=== PATIENT | male | born 1995 | race Caucasian/White ===

== ENCOUNTER 2018-12-03 14:30 | Outpatient (RCR) | payer OTHER, MEDICAID, SELFPAY ==
--- NOTE | 2018-11-02 15:27 | PT.OTN ---
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 Iced knee, went to [email or web address] who recommended wrapping his knee, got worse. No other treatment or imaging. Knee pain increases with walking especially on uneven terrain, including stairs. Decreased pain with rest. No clicking or popping. No numbness or tingling. Only doing UE exercises and walking, no other exercises, admits to favoring of left LE. Tried knee brace but reports it made it worse. 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 Prior Functional Status Baseline Function- ADL's Independent Baseline Function- Mobility Independent Baseline Function- Gait independent, no pain or limp Baseline Function- Work/School No restrictions Baseline Function- Recreation/Hobbies bike, swim, walk, run, hike; no pain Current Functional Impairments (Reported) Functional Limitations- ADL's painful Functional Limitations- Mobility/Gait painful Functional Limitations- Work/School painful Functional Limitations- Recreation/ unable Hobbies PT-OP-C Subjective Start: 10/27/18 15:16 Freq: Status: Active Protocol: Document 11/02/18 15:13 SA (Rec: 11/02/18 15:27 [email or web address]) OP-PT Subjective Patient Comments Patient Comments Pt reports attempted a run which increased symptoms, has not used ice at home int he past but may in the future. Did some of the HEP but not all of it. PT-OP-G Mobility & Gait Start: 10/27/18 15:16 Freq: Status: Active Protocol: Document 10/27/18 15:16 SAK (Rec: 10/27/18 17:16 [facility] [id number]) OP Mobility Evaluation Transfers Sit to Stand holds left LE in front with majority of weight on right LE Functional Movements Squats painful, poor form with excessive ER bilateral LE left greater than right , left forefoot inversion OP Gait Assessment Gait Gait Assistance Required: Independent Gait Deviations General Gait Pattern Antalgic Factors Limiting Gait Function Factors Limiting Gait Function Pain Stair Climbing Evaluation Comments Stair Climbing Comments not done due to pain PT-OP-H Neuro Start: 10/27/18 15:16 Freq: Status: Active Protocol: Document 10/27/18 15:16 SAK (Rec: 10/27/18 17:16 [facility] [id number]) Sensation Evaluation Gross Sensation Gross Sensation WNL Comments Summary Comments denies tingling or numbness PT-OP-J Posture/Palpation/Skin Start: 10/27/18 15:16 Freq: Status: Active Protocol: Document 10/27/18 15:16 [facility] (Rec: 10/27/18 17:16 [facility] [id number]) Posture Evaluation Position Standing Hip Posture (L) Externally Rotated (R) Externally Rotated Knee Posture (L) Int. Tibial Torsion (R) Int. Tibial Torsion Patellar Posture (L) Neutral (R) Neutral Ankle/Foot Posture (L) Pronated (R) Pronated (L) Supinated (L) Forefoot Adducted Foot Arch (L) Low Arch (R) No Arch Palpation Assessment Location left knee Palpation Details no palpable tenderness, patient reports pain is deep inside knee Skin Assessment Other Assessments Skin Assessment Comments skin intact, no swelling noted PT-OP-K Range of Motion Start: 10/27/18 15:16 Freq: Status: Active Protocol: Document 10/27/18 15:16 SAK (Rec: 10/27/18 17:16 [facility] [id number]) Hip Goniometric Range of Motion Hip Measured in Degrees Left Flexion w/Knee Flexed 140 Straight Leg Raise 50 Extension 10 Internal Rotation 40 External Rotation 70 Right Flexion w/Knee Flexed 140 Straight Leg Raise 50 Extension 10 Internal Rotation 45 External Rotation 50 Hip ROM Limitations Hip ROM Limitations Soft Tissue Tightness Knee Goniometric Range of Motion Knee Measured in Degrees Left Flexion Passive (degrees) 100 Extension Active (degrees) 0 Right Flexion Passive (degrees) 110 Extension Active (degrees) 0 Knee ROM Limitations Knee ROM Limitations Soft Tissue Tightness Comments mod quad tightness demetria, PSLR 50 deg demetria mod tightness left IT band Ankle and Foot Goniometric Range of Motion Ankle and Foot ROM Limitations ROM Limitations Soft Tissue Tightness Comments mod gastroc and soleus tightness demetria PT-OP-L Special Tests Start: 10/27/18 15:16 Freq: Status: Active Protocol: Document 10/27/18 15:16 SAK (Rec: 10/27/18 17:16 SAK [id number]) Special Tests Knee Special Tests Patellar Grind Test Test Results negative demetria Flakita's Test Test Results positive for IT band tightness left Valgus- 25 Degrees Test Results negative demetria Varus- 25 Degrees Test Results positive left, negative right Sujatha Test Test Results positive left, negative right Posterior Draw Test Results negative demetria Anterior Draw Test Results mild increase in laxity left PT-OP-M Strength Start: 10/27/18 15:16 Freq: Status: Active Protocol: Document 10/27/18 15:16 [facility] (Rec: 10/27/18 17:16 [facility] [id number]) Hip Strength Hip Manual Muscle Testing Left Flexion (L2) 4 Good Extension (S1) 4- Good- Abduction 4- Good- External Rotation 4- Good- Internal Rotation 4+ Good+ Right Flexion (L2) 5 Normal Extension (S1) 5 Normal Abduction 4 Good External Rotation 4 Good Internal Rotation 5 Normal Knee Strength Knee Manual Muscle Testing Left Flexion (S2) 4 Good Extension (L3) 4 Good Right Flexion (S2) 5 Normal Extension (L3) 5 Normal Ankle/Foot Strength Ankle and Foot Manual Muscle Testing demetria Dorsiflexion (L4) 5 Normal Plantarflexion (S1) 5 Normal PT-OP-Q Treatments Start: 10/27/18 15:16 Freq: Status: Active Protocol: Document 11/02/18 15:13 SA (Rec: 11/02/18 15:27 SA [email or web address]) Cardio Equipment Elliptical Duration (Minutes) 5 Resistance 10 Recumbent Bicycle Duration (Minutes) 5 Resistance 6 Gym Equipment Shuttle Recovery LLE Squat Details Cues for form Resistance 50# Shuttle Recovery Platform Stable Reps/Time 2 x 10 B squat Details Cues for foot position Resistance 100# Shuttle Recovery Platform Stable Reps/Time 2 x 10 Therapeutic Exercises Sidelying Exercises Hip ABd Side left Reps/Minutes 2 x 10 Standing Exercises Squat form Side bilateral Equipment Used at bar Reps/Minutes 10x Comments Education for form, foot position and depth. pain free Manual Therapy Treatment Soft Tissue Mobilization L ITB Body Location L ITB Mobilization Type Myofascial Release Trigger Point Release Intensity/Depth Moderate Comments Manual stretching. Taping Kineso taping Body Location L lateral knee Type of Tape Kinesio Skin Inspection clear Comments Seperation taping, L lateral knee PT-OP-R Modalities Start: 10/27/18 15:16 Freq: Status: Active Protocol: Document 11/02/18 15:13 SA (Rec: 11/02/18 15:27 SA [email or web address]) Electric Stimulation Electric Stimulation IFC Body Location L knee Duration (Minutes) 15 Intensity 11 Contraction Type Normal Target/Sweep Target Patient Position Supine Combined With Heat/Cold Cold Pack Comments Pt nervous at first but tolerated well. PT-OP-T Assessment and Plan Start: 10/27/18 15:16 Freq: Status: Active Protocol: Document 11/02/18 15:13 SA (Rec: 11/02/18 15:27 [email or web address]) Physical Therapy Assessment Assessment Summary Assessment Focused on squat form/ education and avoiding foot basket turner. Pt given handout for squat form and to review again next visit. Exercise reported as pain free today. Physical Therapy Plan Next Visit Focus/Plan Next Note Type Treatment Note Next Visit Plan Assess response to Kinesio taping, E-stim and exercise tolerance, progress as able.
--- NOTE | 2018-11-04 15:44 | PT.OTN ---
Current Diagnoses Pain in unspecified knee (11/04/18) Physical Therapy Treatment Note PT-OP-A Visit Information Start: 10/27/18 15:16 Freq: Status: Active Protocol: Document 11/04/18 14:33 SAK (Rec: 11/04/18 15:15 SAK [id number]) Out-Patient Physical Therapy Visit Information Visit Information Visit Type Treatment Note Visit Start Time 14:30 Visit Stop Time 15:25 Total Visit Minutes 55 Visit Number 3 Number of [employer] WORK[employer] Visits 1 Evaluation Information Evaluation Date 10/27/18 PT-OP-B Current Condition Start: 10/27/18 15:16 Freq: Status: Active Protocol: Document 10/27/18 15:16 SAK (Rec: 10/27/18 16:13 SAK [id number]) Current Condition History of Current Condition Onset Date June 2018 Current Complaints left knee pain History of Current Condition Patient reports onset left knee pain while lifting weights with squatting motion. Iced knee, went to [facility] physician who recommended wrapping his knee, got worse. No other treatment or imaging. Knee pain increases with walking especially on uneven terrain, including stairs. Decreased pain with rest. No clicking or popping. No numbness or tingling. Only doing UE exercises and walking, no other exercises, admits to favoring of left LE. Tried knee brace but reports it made it worse. 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 Prior Functional Status Baseline Function- ADL's Independent Baseline Function- Mobility Independent Baseline Function- Gait independent, no pain or limp Baseline Function- Work/School No restrictions Baseline Function- Recreation/Hobbies bike, swim, walk, run, hike; no pain Current Functional Impairments (Reported) Functional Limitations- ADL's painful Functional Limitations- Mobility/Gait painful Functional Limitations- Work/School painful Functional Limitations- Recreation/ unable Hobbies PT-OP-C Subjective Start: 10/27/18 15:16 Freq: Status: Active Protocol: Document 11/04/18 14:33 SAK (Rec: 11/04/18 15:15 SAK [id number]) OP-PT Subjective Patient Comments Patient Comments Reports doing his exercises but also going for a run despite PT recommendation to do ex bike and elliptical at gym instead. Reports sore after work today; planted trees. PT-OP-G Mobility & Gait Start: 10/27/18 15:16 Freq: Status: Active Protocol: Document 10/27/18 15:16 SAK (Rec: 10/27/18 17:16 [facility] [id number]) OP Mobility Evaluation Transfers Sit to Stand holds left LE in front with majority of weight on right LE Functional Movements Squats painful, poor form with excessive ER bilateral LE left greater than right , left forefoot inversion OP Gait Assessment Gait Gait Assistance Required: Independent Gait Deviations General Gait Pattern Antalgic Factors Limiting Gait Function Factors Limiting Gait Function Pain Stair Climbing Evaluation Comments Stair Climbing Comments not done due to pain PT-OP-H Neuro Start: 10/27/18 15:16 Freq: Status: Active Protocol: Document 10/27/18 15:16 SAK (Rec: 10/27/18 17:16 [facility] [id number]) Sensation Evaluation Gross Sensation Gross Sensation WNL Comments Summary Comments denies tingling or numbness PT-OP-J Posture/Palpation/Skin Start: 10/27/18 15:16 Freq: Status: Active Protocol: Document 10/27/18 15:16 [facility] (Rec: 10/27/18 17:16 [facility] [id number]) Posture Evaluation Position Standing Hip Posture (L) Externally Rotated (R) Externally Rotated Knee Posture (L) Int. Tibial Torsion (R) Int. Tibial Torsion Patellar Posture (L) Neutral (R) Neutral Ankle/Foot Posture (L) Pronated (R) Pronated (L) Supinated (L) Forefoot Adducted Foot Arch (L) Low Arch (R) No Arch Palpation Assessment Location left knee Palpation Details no palpable tenderness, patient reports pain is deep inside knee Skin Assessment Other Assessments Skin Assessment Comments skin intact, no swelling noted PT-OP-K Range of Motion Start: 10/27/18 15:16 Freq: Status: Active Protocol: Document 10/27/18 15:16 [facility] (Rec: 10/27/18 17:16 [facility] [id number]) Hip Goniometric Range of Motion Hip Measured in Degrees Left Flexion w/Knee Flexed 140 Straight Leg Raise 50 Extension 10 Internal Rotation 40 External Rotation 70 Right Flexion w/Knee Flexed 140 Straight Leg Raise 50 Extension 10 Internal Rotation 45 External Rotation 50 Hip ROM Limitations Hip ROM Limitations Soft Tissue Tightness Knee Goniometric Range of Motion Knee Measured in Degrees Left Flexion Passive (degrees) 100 Extension Active (degrees) 0 Right Flexion Passive (degrees) 110 Extension Active (degrees) 0 Knee ROM Limitations Knee ROM Limitations Soft Tissue Tightness Comments mod quad tightness demetria, PSLR 50 deg demetria mod tightness left IT band Ankle and Foot Goniometric Range of Motion Ankle and Foot ROM Limitations ROM Limitations Soft Tissue Tightness Comments mod gastroc and soleus tightness demetria PT-OP-L Special Tests Start: 10/27/18 15:16 Freq: Status: Active Protocol: Document 10/27/18 15:16 [facility] (Rec: 10/27/18 17:16 [facility] [id number]) Special Tests Knee Special Tests Patellar Grind Test Test Results negative demetria Flakita's Test Test Results positive for IT band tightness left Valgus- 25 Degrees Test Results negative demetria Varus- 25 Degrees Test Results positive left, negative right Sujatha Test Test Results positive left, negative right Posterior Draw Test Results negative demetria Anterior Draw Test Results mild increase in laxity left PT-OP-M Strength Start: 10/27/18 15:16 Freq: Status: Active Protocol: Document 10/27/18 15:16 [facility] (Rec: 10/27/18 17:16 [facility] [id number]) Hip Strength Hip Manual Muscle Testing Left Flexion (L2) 4 Good Extension (S1) 4- Good- Abduction 4- Good- External Rotation 4- Good- Internal Rotation 4+ Good+ Right Flexion (L2) 5 Normal Extension (S1) 5 Normal Abduction 4 Good External Rotation 4 Good Internal Rotation 5 Normal Knee Strength Knee Manual Muscle Testing Left Flexion (S2) 4 Good Extension (L3) 4 Good Right Flexion (S2) 5 Normal Extension (L3) 5 Normal Ankle/Foot Strength Ankle and Foot Manual Muscle Testing demetria Dorsiflexion (L4) 5 Normal Plantarflexion (S1) 5 Normal PT-OP-Q Treatments Start: 10/27/18 15:16 Freq: Status: Active Protocol: Document 11/04/18 14:33 [facility] (Rec: 11/04/18 15:15 [facility] [id number]) Cardio Equipment Elliptical Duration (Minutes) 5 Resistance 10 Bicycle (Upright) Duration (Minutes) 5 Resistance 12 Seat Position 5 Other verbal cues and use of mirror for visual feedback re LE alignment Gym Equipment Shuttle Recovery LLE Squat Details Cues for form Resistance 50# Shuttle Recovery Platform Stable Reps/Time 2 x 10 B squat Details Cues for foot position Resistance 100# Shuttle Recovery Platform Stable Reps/Time 2 x 10 Shuttle Balance chains red Details balance and weight-shifts fwd/ bck, side Reps/Duration 10 min Comments emphasis on neutral LE alignment: verbal cues and mirror for visual feedback Therapeutic Exercises Standing Exercises sidestepping with resistance Resistance red TB Reps/Minutes 2 min Comments cues for LE alignment, mild lateral knee pain L Squat form Side bilateral Equipment Used at bar Reps/Minutes 10x Comments Education for form, foot position and depth. pain free Manual Therapy Treatment Soft Tissue Mobilization L ITB Body Location L ITB Mobilization Type Myofascial Release Trigger Point Release Intensity/Depth Moderate Comments Manual stretching. Taping Kineso taping Comments still intact, not done today PT-OP-R Modalities Start: 10/27/18 15:16 Freq: Status: Active Protocol: Document 11/04/18 14:33 [facility] (Rec: 11/04/18 15:15 [facility] [id number]) Electric Stimulation Electric Stimulation IFC Body Location L knee Duration (Minutes) 15 Intensity 11 Contraction Type Normal Target/Sweep Target Patient Position Supine Combined With Heat/Cold Cold Pack Comments Pt nervous at first but tolerated well. PT-OP-T Assessment and Plan Start: 10/27/18 15:16 Freq: Status: Active Protocol: Document 11/04/18 14:33 SAK (Rec: 11/04/18 15:15 [facility] [id number]) Physical Therapy Assessment Goals 4 Impairment pain Short Term Goal (STG) Able to resume at least 50% of usual activities without pain STG Duration 4 wks Skilled Nursing Goal (LTG) able to resume all usual activities without pain LTG Duration 8 wks 3 Impairment muscle imbalances left LE Short Term Goal (STG) Instruct in HEP to address LE flexibility and strengthening including correct form for squat STG Duration 4 wks Skilled Nursing Goal (LTG) Patient to demonstrate LE flexibility and strength WNL and be able to perform squat with good form LTG Duration 8 wks 2 Impairment Unable to walk without increased pain, limp Short Term Goal (STG) Patient able to walk on level surfaces without increase pain , without a limp STG Duration 4 wks Motor Scooter Repairer Goal (LTG) Patient able to walk on all surfaces without increase pain or limp LTG Duration 8 wks 1 Impairment Lower extremity functional scale (LEFS) 39% Short Term Goal (STG) Improve LEFS to 55% STG Duration 4 wks Skilled Nursing Goal (LTG) Improve LEFS to at least 75% LTG Duration 8 wks Assessment Summary Assessment Improved squat form today with improved attention to LE alignment noted, though easily distracted and requires frequent cues. Not compliant with avoiding high impact exercise. Physical Therapy Plan Frequency and Duration Frequency of Treatment 2x/Week Duration of Treatment 8 wks Plan of Care Start Date 10/27/18 Plan of Care End Date 12/27/18 Therapeutic Interventions Therapeutic Interventions Gait Training Home Exercise Program Manual Therapy Neuromuscular Re-education Patient/Caregiver Education Self-Care/Home Management Soft Tissue Mobilization Taping Therapeutic Activities Therapeutic Exercises Modalities Cold Pack/Ice Massage Electric Stimulation Hot Packs Ultrasound Next Visit Focus/Plan Next Note Type Treatment Note Next Visit Plan Add RADHIKA macario, SLS, HS strengthening as mary ellen. Continue to emphasize neutral LE alignment, joint protection .
--- NOTE | 2018-11-08 16:36 | PT.OTN ---
Current Diagnoses Pain in unspecified knee (11/08/18) Physical Therapy Treatment Note PT-OP-A Visit Information Start: 10/27/18 15:16 Freq: Status: Active Protocol: Document 11/08/18 15:30 [facility] (Rec: 11/08/18 16:35 [facility] [id number]) Out-Patient Physical Therapy Visit Information Visit Information Visit Type Treatment Note Visit Start Time 15:30 Visit Stop Time 16:15 Total Visit Minutes 45 Visit Number 4 Number of COMPOUND MIXER Visits 0 Evaluation Information Evaluation Date 10/27/18 PT-OP-B Current Condition Start: 10/27/18 15:16 Freq: Status: Active Protocol: Document 10/27/18 15:16 SAK (Rec: 10/27/18 16:13 [facility] [id number]) Current Condition History of Current Condition Onset Date June 2018 Current Complaints left knee pain History of Current Condition Patient reports onset left knee pain while lifting weights with squatting motion. Iced knee, went to [facility] physician who recommended wrapping his knee, got worse. No other treatment or imaging. Knee pain increases with walking especially on uneven terrain, including stairs. Decreased pain with rest. No clicking or popping. No numbness or tingling. Only doing UE exercises and walking, no other exercises, admits to favoring of left LE. Tried knee brace but reports it made it worse. 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 Prior Functional Status Baseline Function- ADL's Independent Baseline Function- Mobility Independent Baseline Function- Gait independent, no pain or limp Baseline Function- Work/School No restrictions Baseline Function- Recreation/Hobbies bike, swim, walk, run, hike; no pain Current Functional Impairments (Reported) Functional Limitations- ADL's painful Functional Limitations- Mobility/Gait painful Functional Limitations- Work/School painful Functional Limitations- Recreation/ unable Hobbies PT-OP-C Subjective Start: 10/27/18 15:16 Freq: Status: Active Protocol: Document 11/08/18 15:30 SAK (Rec: 11/08/18 16:35 [facility] [id number]) OP-PT Subjective Patient Comments Patient Comments Apologizes for being late, was in a meeting. States overall less knee pain, trying to work on LE alignment with all activities including walking. Went hiking this weekend reported increased pain with hike. PT-OP-G Mobility & Gait Start: 10/27/18 15:16 Freq: Status: Active Protocol: Document 10/27/18 15:16 SAK (Rec: 10/27/18 17:16 [facility] [id number]) OP Mobility Evaluation Transfers Sit to Stand holds left LE in front with majority of weight on right LE Functional Movements Squats painful, poor form with excessive ER bilateral LE left greater than right , left forefoot inversion OP Gait Assessment Gait Gait Assistance Required: Independent Gait Deviations General Gait Pattern Antalgic Factors Limiting Gait Function Factors Limiting Gait Function Pain Stair Climbing Evaluation Comments Stair Climbing Comments not done due to pain PT-OP-H Neuro Start: 10/27/18 15:16 Freq: Status: Active Protocol: Document 10/27/18 15:16 SAK (Rec: 10/27/18 17:16 [facility] [id number]) Sensation Evaluation Gross Sensation Gross Sensation WNL Comments Summary Comments denies tingling or numbness PT-OP-J Posture/Palpation/Skin Start: 10/27/18 15:16 Freq: Status: Active Protocol: Document 10/27/18 15:16 [facility] (Rec: 10/27/18 17:16 [facility] [id number]) Posture Evaluation Position Standing Hip Posture (L) Externally Rotated (R) Externally Rotated Knee Posture (L) Int. Tibial Torsion (R) Int. Tibial Torsion Patellar Posture (L) Neutral (R) Neutral Ankle/Foot Posture (L) Pronated (R) Pronated (L) Supinated (L) Forefoot Adducted Foot Arch (L) Low Arch (R) No Arch Palpation Assessment Location left knee Palpation Details no palpable tenderness, patient reports pain is deep inside knee Skin Assessment Other Assessments Skin Assessment Comments skin intact, no swelling noted PT-OP-K Range of Motion Start: 10/27/18 15:16 Freq: Status: Active Protocol: Document 10/27/18 15:16 SAK (Rec: 10/27/18 17:16 [facility] [id number]) Hip Goniometric Range of Motion Hip Measured in Degrees Left Flexion w/Knee Flexed 140 Straight Leg Raise 50 Extension 10 Internal Rotation 40 External Rotation 70 Right Flexion w/Knee Flexed 140 Straight Leg Raise 50 Extension 10 Internal Rotation 45 External Rotation 50 Hip ROM Limitations Hip ROM Limitations Soft Tissue Tightness Knee Goniometric Range of Motion Knee Measured in Degrees Left Flexion Passive (degrees) 100 Extension Active (degrees) 0 Right Flexion Passive (degrees) 110 Extension Active (degrees) 0 Knee ROM Limitations Knee ROM Limitations Soft Tissue Tightness Comments mod quad tightness demetria, PSLR 50 deg demetria mod tightness left IT band Ankle and Foot Goniometric Range of Motion Ankle and Foot ROM Limitations ROM Limitations Soft Tissue Tightness Comments mod gastroc and soleus tightness demetria PT-OP-L Special Tests Start: 10/27/18 15:16 Freq: Status: Active Protocol: Document 10/27/18 15:16 SAK (Rec: 10/27/18 17:16 [facility] [id number]) Special Tests Knee Special Tests Patellar Grind Test Test Results negative demetria Flakita's Test Test Results positive for IT band tightness left Valgus- 25 Degrees Test Results negative demetria Varus- 25 Degrees Test Results positive left, negative right Sujatha Test Test Results positive left, negative right Posterior Draw Test Results negative demetria Anterior Draw Test Results mild increase in laxity left PT-OP-M Strength Start: 10/27/18 15:16 Freq: Status: Active Protocol: Document 10/27/18 15:16 SAK (Rec: 10/27/18 17:16 [facility] [id number]) Hip Strength Hip Manual Muscle Testing Left Flexion (L2) 4 Good Extension (S1) 4- Good- Abduction 4- Good- External Rotation 4- Good- Internal Rotation 4+ Good+ Right Flexion (L2) 5 Normal Extension (S1) 5 Normal Abduction 4 Good External Rotation 4 Good Internal Rotation 5 Normal Knee Strength Knee Manual Muscle Testing Left Flexion (S2) 4 Good Extension (L3) 4 Good Right Flexion (S2) 5 Normal Extension (L3) 5 Normal Ankle/Foot Strength Ankle and Foot Manual Muscle Testing demetria Dorsiflexion (L4) 5 Normal Plantarflexion (S1) 5 Normal PT-OP-Q Treatments Start: 10/27/18 15:16 Freq: Status: Active Protocol: Document 11/08/18 15:30 SAK (Rec: 11/08/18 16:35 [facility] [id number]) Cardio Equipment Elliptical Duration (Minutes) 5 Resistance 10 Other verbal cues for LE alignment Bicycle (Upright) Duration (Minutes) 5 Resistance 12 Seat Position 5 Other verbal cues and use of mirror for visual feedback re LE alignment Therapeutic Exercises Standing Exercises Squat form Side bilateral Equipment Used mirror Reps/Minutes 10x2 Comments verbal and visual cues (mirror ) for LE alignment, form, depth Manual Therapy Treatment Taping Kineso taping Body Location L lateral knee Treatment Focus pain relief Type of Tape Kineso Skin Inspection skin intact Comments X space correction, 2 I strips PT-OP-R Modalities Start: 10/27/18 15:16 Freq: Status: Active Protocol: Document 11/08/18 15:30 [facility] (Rec: 11/08/18 16:35 [facility] [id number]) Electric Stimulation Electric Stimulation IFC Body Location L knee Duration (Minutes) 15 Intensity 11 Contraction Type Normal Target/Sweep Target Patient Position Supine Combined With Heat/Cold Cold Pack Comments Pt nervous at first but tolerated well. Ultrasound Therapy Treatment lateral left knee Treatment Duration (minutes) 8 Frequency Setting (mHz) 3 Mode Setting Continuous Duty Cycle 50% Intensity Setting (w/cm2) 1.0 PT-OP-T Assessment and Plan Start: 10/27/18 15:16 Freq: Status: Active Protocol: Document 11/08/18 15:30 [facility] (Rec: 11/08/18 16:35 [facility] [id number]) Physical Therapy Assessment Goals 4 Impairment pain Short Term Goal (STG) Able to resume at least 50% of usual activities without pain STG Duration 4 wks Long-Term Goal (LTG) able to resume all usual activities without pain LTG Duration 8 wks 3 Impairment muscle imbalances left LE Short Term Goal (STG) Instruct in HEP to address LE flexibility and strengthening including correct form for squat STG Duration 4 wks Long-Term Goal (LTG) Patient to demonstrate LE flexibility and strength WNL and be able to perform squat with good form LTG Duration 8 wks 2 Impairment Unable to walk without increased pain, limp Short Term Goal (STG) Patient able to walk on level surfaces without increase pain , without a limp STG Duration 4 wks Long-Term Goal (LTG) Patient able to walk on all surfaces without increase pain or limp LTG Duration 8 wks 1 Impairment Lower extremity functional scale (LEFS) 39% Short Term Goal (STG) Improve LEFS to 55% STG Duration 4 wks Audio Visual Collections Coordinator Goal (LTG) Improve LEFS to at least 75% LTG Duration 8 wks Assessment Summary Assessment Initially demonstrated squat with knees going past toes and heels off ground again, but with further cues able to perform correctly. Discussed patient biking vs hiking for exercise if unable to make it to gym. Discussed possibility of knee brace as his job is very physically demanding. Physical Therapy Plan Frequency and Duration Frequency of Treatment 2x/Week Duration of Treatment 8 wks Plan of Care Start Date 10/27/18 Plan of Care End Date 12/27/18 Therapeutic Interventions Therapeutic Interventions Gait Training Home Exercise Program Manual Therapy Neuromuscular Re-education Patient/Caregiver Education Self-Care/Home Management Soft Tissue Mobilization Taping Therapeutic Activities Therapeutic Exercises Modalities Cold Pack/Ice Massage Electric Stimulation Hot Packs Ultrasound Next Visit Focus/Plan Next Note Type Treatment Note Next Visit Plan Trial knee brace. Add BOSU lunge, SLS, HS strengthening as mary ellen. Continue to emphasize neutral LE alignment, joint protection .
--- NOTE | 2018-11-11 18:40 | PT.OTN ---
Current Diagnoses Pain in unspecified knee (11/11/18) Physical Therapy Treatment Note PT-OP-A Visit Information Start: 10/27/18 15:16 Freq: Status: Active Protocol: Document 11/11/18 16:45 [facility] (Rec: 11/11/18 18:40 [facility] [id number]) Out-Patient Physical Therapy Visit Information Visit Information Visit Type Treatment Note Visit Start Time 16:45 Visit Stop Time 17:30 Total Visit Minutes 45 Visit Number 5 Number of WILDLIFE BIOLOGY TECHNICIAN Visits 0 PT-OP-B Current Condition Start: 10/27/18 15:16 Freq: Status: Active Protocol: Document 10/27/18 15:16 SAK (Rec: 10/27/18 16:13 [facility]AK [id number]) Current Condition History of Current Condition Onset Date June 2018 Current Complaints left knee pain History of Current Condition Patient reports onset left knee pain while lifting weights with squatting motion. Iced knee, went to [facility] physician who recommended wrapping his knee, got worse. No other treatment or imaging. Knee pain increases with walking especially on uneven terrain, including stairs. Decreased pain with rest. No clicking or popping. No numbness or tingling. Only doing UE exercises and walking, no other exercises, admits to favoring of left LE. Tried knee brace but reports it made it worse. 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 Prior Functional Status Baseline Function- ADL's Independent Baseline Function- Mobility Independent Baseline Function- Gait independent, no pain or limp Baseline Function- Work/School No restrictions Baseline Function- Recreation/Hobbies bike, swim, walk, run, hike; no pain Current Functional Impairments (Reported) Functional Limitations- ADL's painful Functional Limitations- Mobility/Gait painful Functional Limitations- Work/School painful Functional Limitations- Recreation/ unable Hobbies PT-OP-C Subjective Start: 10/27/18 15:16 Freq: Status: Active Protocol: Document 11/11/18 16:45 HH (Rec: 11/11/18 18:40 HH [id number]) OP-PT Subjective Patient Comments Patient Comments My knee is getting a little better and does not hurt unless i run for a long distance. PT-OP-G Mobility & Gait Start: 10/27/18 15:16 Freq: Status: Active Protocol: Document 10/27/18 15:16 SAK (Rec: 10/27/18 17:16 [facility] [id number]) OP Mobility Evaluation Transfers Sit to Stand holds left LE in front with majority of weight on right LE Functional Movements Squats painful, poor form with excessive ER bilateral LE left greater than right , left forefoot inversion OP Gait Assessment Gait Gait Assistance Required: Independent Gait Deviations General Gait Pattern Antalgic Factors Limiting Gait Function Factors Limiting Gait Function Pain Stair Climbing Evaluation Comments Stair Climbing Comments not done due to pain PT-OP-H Neuro Start: 10/27/18 15:16 Freq: Status: Active Protocol: Document 10/27/18 15:16 SAK (Rec: 10/27/18 17:16 [facility] [id number]) Sensation Evaluation Gross Sensation Gross Sensation WNL Comments Summary Comments denies tingling or numbness PT-OP-J Posture/Palpation/Skin Start: 10/27/18 15:16 Freq: Status: Active Protocol: Document 10/27/18 15:16 SAK (Rec: 10/27/18 17:16 [facility] [id number]) Posture Evaluation Position Standing Hip Posture (L) Externally Rotated (R) Externally Rotated Knee Posture (L) Int. Tibial Torsion (R) Int. Tibial Torsion Patellar Posture (L) Neutral (R) Neutral Ankle/Foot Posture (L) Pronated (R) Pronated (L) Supinated (L) Forefoot Adducted Foot Arch (L) Low Arch (R) No Arch Palpation Assessment Location left knee Palpation Details no palpable tenderness, patient reports pain is deep inside knee Skin Assessment Other Assessments Skin Assessment Comments skin intact, no swelling noted PT-OP-K Range of Motion Start: 10/27/18 15:16 Freq: Status: Active Protocol: Document 10/27/18 15:16 SAK (Rec: 10/27/18 17:16 [facility] [id number]) Hip Goniometric Range of Motion Hip Measured in Degrees Left Flexion w/Knee Flexed 140 Straight Leg Raise 50 Extension 10 Internal Rotation 40 External Rotation 70 Right Flexion w/Knee Flexed 140 Straight Leg Raise 50 Extension 10 Internal Rotation 45 External Rotation 50 Hip ROM Limitations Hip ROM Limitations Soft Tissue Tightness Knee Goniometric Range of Motion Knee Measured in Degrees Left Flexion Passive (degrees) 100 Extension Active (degrees) 0 Right Flexion Passive (degrees) 110 Extension Active (degrees) 0 Knee ROM Limitations Knee ROM Limitations Soft Tissue Tightness Comments mod quad tightness demetria, PSLR 50 deg demetria mod tightness left IT band Ankle and Foot Goniometric Range of Motion Ankle and Foot ROM Limitations ROM Limitations Soft Tissue Tightness Comments mod gastroc and soleus tightness demetria PT-OP-L Special Tests Start: 10/27/18 15:16 Freq: Status: Active Protocol: Document 10/27/18 15:16 SAK (Rec: 10/27/18 17:16 [facility]AK [id number]) Special Tests Knee Special Tests Patellar Grind Test Test Results negative demetria Flakita's Test Test Results positive for IT band tightness left Valgus- 25 Degrees Test Results negative demetria Varus- 25 Degrees Test Results positive left, negative right Sujatha Test Test Results positive left, negative right Posterior Draw Test Results negative demetria Anterior Draw Test Results mild increase in laxity left PT-OP-M Strength Start: 10/27/18 15:16 Freq: Status: Active Protocol: Document 10/27/18 15:16 SAK (Rec: 10/27/18 17:16 [facility] [id number]) Hip Strength Hip Manual Muscle Testing Left Flexion (L2) 4 Good Extension (S1) 4- Good- Abduction 4- Good- External Rotation 4- Good- Internal Rotation 4+ Good+ Right Flexion (L2) 5 Normal Extension (S1) 5 Normal Abduction 4 Good External Rotation 4 Good Internal Rotation 5 Normal Knee Strength Knee Manual Muscle Testing Left Flexion (S2) 4 Good Extension (L3) 4 Good Right Flexion (S2) 5 Normal Extension (L3) 5 Normal Ankle/Foot Strength Ankle and Foot Manual Muscle Testing demetria Dorsiflexion (L4) 5 Normal Plantarflexion (S1) 5 Normal PT-OP-Q Treatments Start: 10/27/18 15:16 Freq: Status: Active Protocol: Document 11/11/18 16:45 HH (Rec: 11/11/18 18:40 HH [id number]) Therapeutic Exercises Supine Exercises R hip flexor stretch Side right Equipment Used manual stretch Reps/Minutes 30 secs x 4 Standing Exercises RDL Side bilateral Reps/Minutes ankle touch lunges Side bilateral Reps/Minutes 10 x 3 Comments cues for alignment Squat form Side bilateral Equipment Used mirror Reps/Minutes 10x2 Manual Therapy Treatment Soft Tissue Mobilization L hip IR Mobilization Type Other Body Position Prone Comments manual stretching in prone L lateral HS Mobilization Type Myofascial Release Strumming Sustained Pressure Intensity/Depth Moderate L ITB Body Location L ITB Mobilization Type Myofascial Release Trigger Point Release Intensity/Depth Moderate Comments Manual stretching. PT-OP-R Modalities Start: 10/27/18 15:16 Freq: Status: Active Protocol: Document 11/08/18 15:30 SAK (Rec: 11/08/18 16:35 [facility] [id number]) Electric Stimulation Electric Stimulation IFC Body Location L knee Duration (Minutes) 15 Intensity 11 Contraction Type Normal Target/Sweep Target Patient Position Supine Combined With Heat/Cold Cold Pack Comments Pt nervous at first but tolerated well. Ultrasound Therapy Treatment lateral left knee Treatment Duration (minutes) 8 Frequency Setting (mHz) 3 Mode Setting Continuous Duty Cycle 50% Intensity Setting (w/cm2) 1.0 PT-OP-T Assessment and Plan Start: 10/27/18 15:16 Freq: Status: Active Protocol: Document 11/11/18 16:45 HH (Rec: 11/11/18 18:40 HH [id number]) Physical Therapy Assessment Assessment Summary Assessment Pt cont presents increased weight shift to R LE during squat and needed cues for LE aligment. There's noticeable insufficient L hip internal rotation and decreased R hip flexion flexibility which indicate L posterior inominate / R anterior inominate. Therex focused on increased LLE WB with RDL and lunges. Pt noticed significant weakness and redcued balacne on LLE. Physical Therapy Plan Frequency and Duration Frequency of Treatment 2x/Week Duration of Treatment 8 wks Plan of Care Start Date 10/27/18 Plan of Care End Date 12/27/18 Therapeutic Interventions Therapeutic Interventions Gait Training Home Exercise Program Manual Therapy Neuromuscular Re-education Patient/Caregiver Education Self-Care/Home Management Soft Tissue Mobilization Taping Therapeutic Activities Therapeutic Exercises Modalities Cold Pack/Ice Massage Electric Stimulation Hot Packs Ultrasound Next Visit Focus/Plan Next Note Type Treatment Note Next Visit Plan Trial knee brace. Add BOSU lunge, SLS, HS strengthening as mary ellen. Continue to emphasize neutral LE alignment, joint protection .
--- NOTE | 2018-11-12 15:43 | PT.OTN ---
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 Iced knee, went to [facility] physician who recommended wrapping his knee, got worse. No other treatment or imaging. Knee pain increases with walking especially on uneven terrain, including stairs. Decreased pain with rest. No clicking or popping. No numbness or tingling. Only doing UE exercises and walking, no other exercises, admits to favoring of left LE. Tried knee brace but reports it made it worse. 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 Prior Functional Status Baseline Function- ADL's Independent Baseline Function- Mobility Independent Baseline Function- Gait independent, no pain or limp Baseline Function- Work/School No restrictions Baseline Function- Recreation/Hobbies bike, swim, walk, run, hike; no pain Current Functional Impairments (Reported) Functional Limitations- ADL's painful Functional Limitations- Mobility/Gait painful Functional Limitations- Work/School painful Functional Limitations- Recreation/ unable Hobbies PT-OP-C Subjective Start: 10/27/18 15:16 Freq: Status: Active Protocol: Document 11/12/18 15:30 SA (Rec: 11/12/18 15:43 SA [email or web address]) OP-PT Subjective Patient Comments Patient Comments Pt states he can run forever on even surface but can only tolerate about 5 minutes on uneven terrain. PT-OP-G Mobility & Gait Start: 10/27/18 15:16 Freq: Status: Active Protocol: Document 10/27/18 15:16 SAK (Rec: 10/27/18 17:16 [facility] [id number]) OP Mobility Evaluation Transfers Sit to Stand holds left LE in front with majority of weight on right LE Functional Movements Squats painful, poor form with excessive ER bilateral LE left greater than right , left forefoot inversion OP Gait Assessment Gait Gait Assistance Required: Independent Gait Deviations General Gait Pattern Antalgic Factors Limiting Gait Function Factors Limiting Gait Function Pain Stair Climbing Evaluation Comments Stair Climbing Comments not done due to pain PT-OP-H Neuro Start: 10/27/18 15:16 Freq: Status: Active Protocol: Document 10/27/18 15:16 SAK (Rec: 10/27/18 17:16 [facility] [id number]) Sensation Evaluation Gross Sensation Gross Sensation WNL Comments Summary Comments denies tingling or numbness PT-OP-J Posture/Palpation/Skin Start: 10/27/18 15:16 Freq: Status: Active Protocol: Document 10/27/18 15:16 SAK (Rec: 10/27/18 17:16 [facility] [id number]) Posture Evaluation Position Standing Hip Posture (L) Externally Rotated (R) Externally Rotated Knee Posture (L) Int. Tibial Torsion (R) Int. Tibial Torsion Patellar Posture (L) Neutral (R) Neutral Ankle/Foot Posture (L) Pronated (R) Pronated (L) Supinated (L) Forefoot Adducted Foot Arch (L) Low Arch (R) No Arch Palpation Assessment Location left knee Palpation Details no palpable tenderness, patient reports pain is deep inside knee Skin Assessment Other Assessments Skin Assessment Comments skin intact, no swelling noted PT-OP-K Range of Motion Start: 10/27/18 15:16 Freq: Status: Active Protocol: Document 10/27/18 15:16 SAK (Rec: 10/27/18 17:16 [facility] [id number]) Hip Goniometric Range of Motion Hip Measured in Degrees Left Flexion w/Knee Flexed 140 Straight Leg Raise 50 Extension 10 Internal Rotation 40 External Rotation 70 Right Flexion w/Knee Flexed 140 Straight Leg Raise 50 Extension 10 Internal Rotation 45 External Rotation 50 Hip ROM Limitations Hip ROM Limitations Soft Tissue Tightness Knee Goniometric Range of Motion Knee Measured in Degrees Left Flexion Passive (degrees) 100 Extension Active (degrees) 0 Right Flexion Passive (degrees) 110 Extension Active (degrees) 0 Knee ROM Limitations Knee ROM Limitations Soft Tissue Tightness Comments mod quad tightness demetria, PSLR 50 deg demetria mod tightness left IT band Ankle and Foot Goniometric Range of Motion Ankle and Foot ROM Limitations ROM Limitations Soft Tissue Tightness Comments mod gastroc and soleus tightness demetria PT-OP-L Special Tests Start: 10/27/18 15:16 Freq: Status: Active Protocol: Document 10/27/18 15:16 [facility] (Rec: 10/27/18 17:16 [facility] [id number]) Special Tests Knee Special Tests Patellar Grind Test Test Results negative demetria Flakita's Test Test Results positive for IT band tightness left Valgus- 25 Degrees Test Results negative demetria Varus- 25 Degrees Test Results positive left, negative right Sujatha Test Test Results positive left, negative right Posterior Draw Test Results negative demetria Anterior Draw Test Results mild increase in laxity left PT-OP-M Strength Start: 10/27/18 15:16 Freq: Status: Active Protocol: Document 10/27/18 15:16 [facility] (Rec: 10/27/18 17:16 [facility] [id number]) Hip Strength Hip Manual Muscle Testing Left Flexion (L2) 4 Good Extension (S1) 4- Good- Abduction 4- Good- External Rotation 4- Good- Internal Rotation 4+ Good+ Right Flexion (L2) 5 Normal Extension (S1) 5 Normal Abduction 4 Good External Rotation 4 Good Internal Rotation 5 Normal Knee Strength Knee Manual Muscle Testing Left Flexion (S2) 4 Good Extension (L3) 4 Good Right Flexion (S2) 5 Normal Extension (L3) 5 Normal Ankle/Foot Strength Ankle and Foot Manual Muscle Testing demetria Dorsiflexion (L4) 5 Normal Plantarflexion (S1) 5 Normal PT-OP-Q Treatments Start: 10/27/18 15:16 Freq: Status: Active Protocol: Document 11/12/18 15:30 SA (Rec: 11/12/18 15:43 SA [email or web address]) Cardio Equipment Elliptical Duration (Minutes) 5 Resistance 11 Bicycle (Upright) Duration (Minutes) 5 Resistance 12 Seat Position 5 Gym Equipment Cable Column (Body Solid) HS curls Details 3 plates Reps/Time 15 x cues to slow down Therapeutic Exercises Supine Exercises R hip flexor stretch Side right Equipment Used manual stretch Reps/Minutes 30 secs x 4 Standing Exercises BOSU lunge Side bilateral Equipment Used Bosu Reps/Minutes 10 x each RDL Side bilateral Reps/Minutes ankle touch lunges Side bilateral Reps/Minutes 10 x 3 Comments cues for alignment sidestepping with resistance Resistance red TB Reps/Minutes 2 min Comments cues for LE alignment, mild lateral knee pain L Squat form Side bilateral Equipment Used mirror Reps/Minutes 10x2 Manual Therapy Treatment Taping Kineso taping Body Location L lateral knee Treatment Focus pain relief Type of Tape Kineso Skin Inspection skin intact Comments X space correction, 2 I strips PT-OP-R Modalities Start: 10/27/18 15:16 Freq: Status: Active Protocol: Document 11/12/18 15:30 SA (Rec: 11/12/18 15:43 SA [email or web address]) Electric Stimulation Electric Stimulation IFC Body Location L knee Duration (Minutes) 15 Intensity 11 Contraction Type Normal Target/Sweep Target Patient Position Supine Combined With Heat/Cold Cold Pack Comments Tolerating well PT-OP-T Assessment and Plan Start: 10/27/18 15:16 Freq: Status: Active Protocol: Document 11/12/18 15:30 SA (Rec: 11/12/18 15:43 SA [email or web address]) Physical Therapy Assessment Assessment Summary Assessment Focused on form with squats and increasing LLE WBing during standing exercise. Pt also rushes with exercise and needs repeated cues for pacing and form. Physical Therapy Plan Next Visit Focus/Plan Next Note Type Treatment Note Next Visit Plan Added Bosu lunge, SLS and HS curls, Continue to progress strengthening program as tolerated and balance on uneven terrain.
--- NOTE | 2018-11-16 15:29 | PT.OTN ---
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 Iced knee, went to [facility] physician who recommended wrapping his knee, got worse. No other treatment or imaging. Knee pain increases with walking especially on uneven terrain, including stairs. Decreased pain with rest. No clicking or popping. No numbness or tingling. Only doing UE exercises and walking, no other exercises, admits to favoring of left LE. Tried knee brace but reports it made it worse. 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 Prior Functional Status Baseline Function- ADL's Independent Baseline Function- Mobility Independent Baseline Function- Gait independent, no pain or limp Baseline Function- Work/School No restrictions Baseline Function- Recreation/Hobbies bike, swim, walk, run, hike; no pain Current Functional Impairments (Reported) Functional Limitations- ADL's painful Functional Limitations- Mobility/Gait painful Functional Limitations- Work/School painful Functional Limitations- Recreation/ unable Hobbies PT-OP-C Subjective Start: 10/27/18 15:16 Freq: Status: Active Protocol: Document 11/16/18 15:18 SA (Rec: 11/16/18 15:28 [email or web address]) OP-PT Subjective Patient Comments Patient Comments Pt reports going on hike last night and having very minimal soreness today. PT-OP-G Mobility & Gait Start: 10/27/18 15:16 Freq: Status: Active Protocol: Document 10/27/18 15:16 SAK (Rec: 10/27/18 17:16 SAK [id number]) OP Mobility Evaluation Transfers Sit to Stand holds left LE in front with majority of weight on right LE Functional Movements Squats painful, poor form with excessive ER bilateral LE left greater than right , left forefoot inversion OP Gait Assessment Gait Gait Assistance Required: Independent Gait Deviations General Gait Pattern Antalgic Factors Limiting Gait Function Factors Limiting Gait Function Pain Stair Climbing Evaluation Comments Stair Climbing Comments not done due to pain PT-OP-H Neuro Start: 10/27/18 15:16 Freq: Status: Active Protocol: Document 10/27/18 15:16 SAK (Rec: 10/27/18 17:16 SAK [id number]) Sensation Evaluation Gross Sensation Gross Sensation WNL Comments Summary Comments denies tingling or numbness PT-OP-J Posture/Palpation/Skin Start: 10/27/18 15:16 Freq: Status: Active Protocol: Document 10/27/18 15:16 SAK (Rec: 10/27/18 17:16 SAK [id number]) Posture Evaluation Position Standing Hip Posture (L) Externally Rotated (R) Externally Rotated Knee Posture (L) Int. Tibial Torsion (R) Int. Tibial Torsion Patellar Posture (L) Neutral (R) Neutral Ankle/Foot Posture (L) Pronated (R) Pronated (L) Supinated (L) Forefoot Adducted Foot Arch (L) Low Arch (R) No Arch Palpation Assessment Location left knee Palpation Details no palpable tenderness, patient reports pain is deep inside knee Skin Assessment Other Assessments Skin Assessment Comments skin intact, no swelling noted PT-OP-K Range of Motion Start: 10/27/18 15:16 Freq: Status: Active Protocol: Document 10/27/18 15:16 SAK (Rec: 10/27/18 17:16 SAK [id number]) Hip Goniometric Range of Motion Hip Measured in Degrees Left Flexion w/Knee Flexed 140 Straight Leg Raise 50 Extension 10 Internal Rotation 40 External Rotation 70 Right Flexion w/Knee Flexed 140 Straight Leg Raise 50 Extension 10 Internal Rotation 45 External Rotation 50 Hip ROM Limitations Hip ROM Limitations Soft Tissue Tightness Knee Goniometric Range of Motion Knee Measured in Degrees Left Flexion Passive (degrees) 100 Extension Active (degrees) 0 Right Flexion Passive (degrees) 110 Extension Active (degrees) 0 Knee ROM Limitations Knee ROM Limitations Soft Tissue Tightness Comments mod quad tightness demetria, PSLR 50 deg demetria mod tightness left IT band Ankle and Foot Goniometric Range of Motion Ankle and Foot ROM Limitations ROM Limitations Soft Tissue Tightness Comments mod gastroc and soleus tightness demetria PT-OP-L Special Tests Start: 10/27/18 15:16 Freq: Status: Active Protocol: Document 10/27/18 15:16 [facility] (Rec: 10/27/18 17:16 [facility] [id number]) Special Tests Knee Special Tests Patellar Grind Test Test Results negative demetria Flakita's Test Test Results positive for IT band tightness left Valgus- 25 Degrees Test Results negative demetria Varus- 25 Degrees Test Results positive left, negative right Sujatha Test Test Results positive left, negative right Posterior Draw Test Results negative demetria Anterior Draw Test Results mild increase in laxity left PT-OP-M Strength Start: 10/27/18 15:16 Freq: Status: Active Protocol: Document 10/27/18 15:16 [facility] (Rec: 10/27/18 17:16 [facility] [id number]) Hip Strength Hip Manual Muscle Testing Left Flexion (L2) 4 Good Extension (S1) 4- Good- Abduction 4- Good- External Rotation 4- Good- Internal Rotation 4+ Good+ Right Flexion (L2) 5 Normal Extension (S1) 5 Normal Abduction 4 Good External Rotation 4 Good Internal Rotation 5 Normal Knee Strength Knee Manual Muscle Testing Left Flexion (S2) 4 Good Extension (L3) 4 Good Right Flexion (S2) 5 Normal Extension (L3) 5 Normal Ankle/Foot Strength Ankle and Foot Manual Muscle Testing demetria Dorsiflexion (L4) 5 Normal Plantarflexion (S1) 5 Normal PT-OP-Q Treatments Start: 10/27/18 15:16 Freq: Status: Active Protocol: Document 11/16/18 15:18 SA (Rec: 11/16/18 15:28 SA [email or web address]) Cardio Equipment Elliptical Duration (Minutes) 5 Resistance 11 Bicycle (Upright) Duration (Minutes) 5 Resistance 12 Seat Position 5 Gym Equipment Cable Column (Body Solid) HS curls Details 3-4 plates Reps/Time 10x at 3 and 10x at 4plates Therapeutic Exercises Standing Exercises BOSU lunge Side left Equipment Used Bosu and mirror Reps/Minutes 20x RDL Side bilateral Reps/Minutes ankle touch lunges Side bilateral Reps/Minutes 20 x each Comments cues for alignment Squat form Side bilateral Equipment Used mirror Reps/Minutes 20x Other Exercises Sport cord Lateral step Resistance Step to Left Equipment Used mirror Reps/Minutes 8 lengths Comments cues for pace Sport Cord Squat Resistance Lean to Left Equipment Used mirror for feedback Reps/Minutes 15x Manual Therapy Treatment Taping Kineso taping Body Location L lateral knee Treatment Focus pain relief Type of Tape Kineso Skin Inspection skin intact Comments X space correction, 2 I strips Manual Techniques Passive HS stretching Body Location L HS Reps/Duration 30 x 3 Comments handout for HEP, pt to stretch daily. PT-OP-R Modalities Start: 10/27/18 15:16 Freq: Status: Active Protocol: Document 11/16/18 15:28 SA (Rec: 11/16/18 15:28 SA [email or web address]) Hot Pack/Cold Pack Treatment Cold Pack Patient Position Supine Treatment Duration (minutes) 10 Patient Tolerance Good PT-OP-T Assessment and Plan Start: 10/27/18 15:16 Freq: Status: Active Protocol: Document 11/16/18 15:18 SA (Rec: 11/16/18 15:28 SA [email or web address]) Physical Therapy Assessment Assessment Summary Assessment Pt needs cues with all exercise for focus on form and slow/controlled pace, mirror for visual feedback helps, focus on squat and lunge form today. Physical Therapy Plan Next Visit Focus/Plan Next Note Type Treatment Note Next Visit Plan Cont to progress knee/hip strength and stability program , follow up with [facility].
--- NOTE | 2018-11-24 16:37 | PT.OTN ---
Current Diagnoses Pain in unspecified knee (11/24/18) Physical Therapy Treatment Note PT-OP-A Visit Information Start: 10/27/18 15:16 Freq: Status: Active Protocol: Document 11/24/18 16:23 [facility] (Rec: 11/24/18 16:36 [facility] [id number]) Out-Patient Physical Therapy Visit Information Visit Information Visit Type Treatment Note Visit Start Time 14:40 Visit Stop Time 15:25 Total Visit Minutes 45 Visit Number 8 PT-OP-B Current Condition Start: 10/27/18 15:16 Freq: Status: Active Protocol: Document 10/27/18 15:16 [facility] (Rec: 10/27/18 16:13 [facility] [id number]) Current Condition History of Current Condition Onset Date June 2018 Current Complaints left knee pain History of Current Condition Patient reports onset left knee pain while lifting weights with squatting motion. Iced knee, went to [facility] physician who recommended wrapping his knee, got worse. No other treatment or imaging. Knee pain increases with walking especially on uneven terrain, including stairs. Decreased pain with rest. No clicking or popping. No numbness or tingling. Only doing UE exercises and walking, no other exercises, admits to favoring of left LE. Tried knee brace but reports it made it worse. 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 Prior Functional Status Baseline Function- ADL's Independent Baseline Function- Mobility Independent Baseline Function- Gait independent, no pain or limp Baseline Function- Work/School No restrictions Baseline Function- Recreation/Hobbies bike, swim, walk, run, hike; no pain Current Functional Impairments (Reported) Functional Limitations- ADL's painful Functional Limitations- Mobility/Gait painful Functional Limitations- Work/School painful Functional Limitations- Recreation/ unable Hobbies PT-OP-C Subjective Start: 10/27/18 15:16 Freq: Status: Active Protocol: Document 11/24/18 16:23 [facility] (Rec: 11/24/18 16:36 [facility] [id number]) OP-PT Subjective Patient Comments Patient Comments Went on hike, had some increase in pain posterior left knee, requests no elliptical today. PT-OP-G Mobility & Gait Start: 10/27/18 15:16 Freq: Status: Active Protocol: Document 10/27/18 15:16 [facility] (Rec: 10/27/18 17:16 [facility] [id number]) OP Mobility Evaluation Transfers Sit to Stand holds left LE in front with majority of weight on right LE Functional Movements Squats painful, poor form with excessive ER bilateral LE left greater than right , left forefoot inversion OP Gait Assessment Gait Gait Assistance Required: Independent Gait Deviations General Gait Pattern Antalgic Factors Limiting Gait Function Factors Limiting Gait Function Pain Stair Climbing Evaluation Comments Stair Climbing Comments not done due to pain PT-OP-H Neuro Start: 10/27/18 15:16 Freq: Status: Active Protocol: Document 10/27/18 15:16 [facility] (Rec: 10/27/18 17:16 [facility] [id number]) Sensation Evaluation Gross Sensation Gross Sensation WNL Comments Summary Comments denies tingling or numbness PT-OP-J Posture/Palpation/Skin Start: 10/27/18 15:16 Freq: Status: Active Protocol: Document 10/27/18 15:16 [facility] (Rec: 10/27/18 17:16 [facility] [id number]) Posture Evaluation Position Standing Hip Posture (L) Externally Rotated (R) Externally Rotated Knee Posture (L) Int. Tibial Torsion (R) Int. Tibial Torsion Patellar Posture (L) Neutral (R) Neutral Ankle/Foot Posture (L) Pronated (R) Pronated (L) Supinated (L) Forefoot Adducted Foot Arch (L) Low Arch (R) No Arch Palpation Assessment Location left knee Palpation Details no palpable tenderness, patient reports pain is deep inside knee Skin Assessment Other Assessments Skin Assessment Comments skin intact, no swelling noted PT-OP-K Range of Motion Start: 10/27/18 15:16 Freq: Status: Active Protocol: Document 10/27/18 15:16 [facility] (Rec: 10/27/18 17:16 [facility] [id number]) Hip Goniometric Range of Motion Hip Measured in Degrees Left Flexion w/Knee Flexed 140 Straight Leg Raise 50 Extension 10 Internal Rotation 40 External Rotation 70 Right Flexion w/Knee Flexed 140 Straight Leg Raise 50 Extension 10 Internal Rotation 45 External Rotation 50 Hip ROM Limitations Hip ROM Limitations Soft Tissue Tightness Knee Goniometric Range of Motion Knee Measured in Degrees Left Flexion Passive (degrees) 100 Extension Active (degrees) 0 Right Flexion Passive (degrees) 110 Extension Active (degrees) 0 Knee ROM Limitations Knee ROM Limitations Soft Tissue Tightness Comments mod quad tightness demetria, PSLR 50 deg demetria mod tightness left IT band Ankle and Foot Goniometric Range of Motion Ankle and Foot ROM Limitations ROM Limitations Soft Tissue Tightness Comments mod gastroc and soleus tightness demetria PT-OP-L Special Tests Start: 10/27/18 15:16 Freq: Status: Active Protocol: Document 10/27/18 15:16 [facility] (Rec: 10/27/18 17:16 [facility] [id number]) Special Tests Knee Special Tests Patellar Grind Test Test Results negative demetria Flakita's Test Test Results positive for IT band tightness left Valgus- 25 Degrees Test Results negative demetria Varus- 25 Degrees Test Results positive left, negative right Sujatha Test Test Results positive left, negative right Posterior Draw Test Results negative demetria Anterior Draw Test Results mild increase in laxity left PT-OP-M Strength Start: 10/27/18 15:16 Freq: Status: Active Protocol: Document 10/27/18 15:16 [facility] (Rec: 10/27/18 17:16 [facility] [id number]) Hip Strength Hip Manual Muscle Testing Left Flexion (L2) 4 Good Extension (S1) 4- Good- Abduction 4- Good- External Rotation 4- Good- Internal Rotation 4+ Good+ Right Flexion (L2) 5 Normal Extension (S1) 5 Normal Abduction 4 Good External Rotation 4 Good Internal Rotation 5 Normal Knee Strength Knee Manual Muscle Testing Left Flexion (S2) 4 Good Extension (L3) 4 Good Right Flexion (S2) 5 Normal Extension (L3) 5 Normal Ankle/Foot Strength Ankle and Foot Manual Muscle Testing demetria Dorsiflexion (L4) 5 Normal Plantarflexion (S1) 5 Normal PT-OP-Q Treatments Start: 10/27/18 15:16 Freq: Status: Active Protocol: Document 11/24/18 16:23 [facility] (Rec: 11/24/18 16:36 [facility] [id number]) Cardio Equipment Bicycle (Upright) Duration (Minutes) 5 Resistance 12 Seat Position 5 Gym Equipment Cable Column (Body Solid) HS curls Details 4-5 plates Reps/Time 10x at 4 and 7x at 5plates Therapeutic Exercises Supine Exercises SLR Resistance 2# Reps/Minutes 12x R hip flexor stretch Side right Equipment Used manual stretch Reps/Minutes 30 secs x 4 Prone Exercises hip ext Resistance 2# Reps/Minutes 10x Sidelying Exercises Hip ABd Side left Resistance 2# Reps/Minutes 12x Standing Exercises forward and lateral step-up Equipment Used 4 step HS stretch Equipment Used stair Reps/Minutes 2x30 BOSU lunge Side left Equipment Used Bosu and mirror Reps/Minutes 20x lunges Side bilateral Reps/Minutes 20 x each Comments cues for alignment Squat form Side bilateral Equipment Used mirror Reps/Minutes 20x Other Exercises Sport cord Lateral step Resistance step to left Equipment Used mirror Reps/Minutes 5x ea right and left Comments cues for alignment Manual Therapy Treatment Soft Tissue Mobilization L lateral HS Mobilization Type Myofascial Release Strumming Sustained Pressure Intensity/Depth Moderate L ITB Body Location L ITB Mobilization Type Myofascial Release Trigger Point Release Intensity/Depth Moderate Comments Manual stretching. Taping Kineso taping Body Location L lateral knee Treatment Focus pain relief Type of Tape Kineso Skin Inspection skin intact Comments X space correction, 2 I strips PT-OP-R Modalities Start: 10/27/18 15:16 Freq: Status: Active Protocol: Document 11/24/18 16:23 [facility] (Rec: 11/24/18 16:37 [facility] [id number]) Electric Stimulation Electric Stimulation IFC Body Location L knee Duration (Minutes) 15 Intensity 11 Contraction Type Normal Target/Sweep Target Patient Position Supine Combined With Heat/Cold Cold Pack Comments Tolerating well PT-OP-T Assessment and Plan Start: 10/27/18 15:16 Freq: Status: Active Protocol: Document 11/24/18 16:23 [facility] (Rec: 11/24/18 16:36 [facility] [id number]) Physical Therapy Assessment Assessment Summary Assessment Patient demonstating improved LE alignment with gait, needs mod cueing for form with ther ex. Pain easily exacerbated. Inconsistently performing HEP . Physical Therapy Plan Frequency and Duration Frequency of Treatment 2x/Week Duration of Treatment 8 wks Plan of Care Start Date 10/27/18 Plan of Care End Date 12/27/18 Therapeutic Interventions Therapeutic Interventions Gait Training Home Exercise Program Manual Therapy Neuromuscular Re-education Patient/Caregiver Education Self-Care/Home Management Soft Tissue Mobilization Taping Therapeutic Activities Therapeutic Exercises Modalities Cold Pack/Ice Massage Electric Stimulation Hot Packs Ultrasound Next Visit Focus/Plan Next Note Type Treatment Note Next Visit Plan Cont to progress knee/hip strength and stability program , hip and knee flexibility, neuro re-ed for improved efficiency of movement.
--- NOTE | 2018-11-26 17:27 | PT.OTN ---
Current Diagnoses Pain in unspecified knee (11/26/18) Physical Therapy Treatment Note PT-OP-A Visit Information Start: 10/27/18 15:16 Freq: Status: Active Protocol: Document 11/26/18 14:30 [facility] (Rec: 11/26/18 17:27 [id number]) Out-Patient Physical Therapy Visit Information Visit Information Visit Type Treatment Note Visit Start Time 14:30 Visit Stop Time 15:15 Total Visit Minutes 45 Visit Number 9 Number of [employer] Visits 0 PT-OP-B Current Condition Start: 10/27/18 15:16 Freq: Status: Active Protocol: Document 10/27/18 15:16 [facility] (Rec: 10/27/18 16:13 [facility] [id number]) Current Condition History of Current Condition Onset Date June 2018 Current Complaints left knee pain History of Current Condition Patient reports onset left knee pain while lifting weights with squatting motion. Iced knee, went to [facility] physician who recommended wrapping his knee, got worse. No other treatment or imaging. Knee pain increases with walking especially on uneven terrain, including stairs. Decreased pain with rest. No clicking or popping. No numbness or tingling. Only doing UE exercises and walking, no other exercises, admits to favoring of left LE. Tried knee brace but reports it made it worse. 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 Prior Functional Status Baseline Function- ADL's Independent Baseline Function- Mobility Independent Baseline Function- Gait independent, no pain or limp Baseline Function- Work/School No restrictions Baseline Function- Recreation/Hobbies bike, swim, walk, run, hike; no pain Current Functional Impairments (Reported) Functional Limitations- ADL's painful Functional Limitations- Mobility/Gait painful Functional Limitations- Work/School painful Functional Limitations- Recreation/ unable Hobbies PT-OP-C Subjective Start: 10/27/18 15:16 Freq: Status: Active Protocol: Document 11/26/18 14:30 [facility] (Rec: 11/26/18 17:27 [facility] [email or web address]) OP-PT Subjective Patient Comments Patient Comments C/o lateral distal hamstring pain during biking from last session and after a walk. PT-OP-G Mobility & Gait Start: 10/27/18 15:16 Freq: Status: Active Protocol: Document 10/27/18 15:16 [facility] (Rec: 10/27/18 17:16 [facility] [id number]) OP Mobility Evaluation Transfers Sit to Stand holds left LE in front with majority of weight on right LE Functional Movements Squats painful, poor form with excessive ER bilateral LE left greater than right , left forefoot inversion OP Gait Assessment Gait Gait Assistance Required: Independent Gait Deviations General Gait Pattern Antalgic Factors Limiting Gait Function Factors Limiting Gait Function Pain Stair Climbing Evaluation Comments Stair Climbing Comments not done due to pain PT-OP-H Neuro Start: 10/27/18 15:16 Freq: Status: Active Protocol: Document 10/27/18 15:16 [facility] (Rec: 10/27/18 17:16 [facility] [id number]) Sensation Evaluation Gross Sensation Gross Sensation WNL Comments Summary Comments denies tingling or numbness PT-OP-J Posture/Palpation/Skin Start: 10/27/18 15:16 Freq: Status: Active Protocol: Document 10/27/18 15:16 [facility] (Rec: 10/27/18 17:16 [facility] [id number]) Posture Evaluation Position Standing Hip Posture (L) Externally Rotated (R) Externally Rotated Knee Posture (L) Int. Tibial Torsion (R) Int. Tibial Torsion Patellar Posture (L) Neutral (R) Neutral Ankle/Foot Posture (L) Pronated (R) Pronated (L) Supinated (L) Forefoot Adducted Foot Arch (L) Low Arch (R) No Arch Palpation Assessment Location left knee Palpation Details no palpable tenderness, patient reports pain is deep inside knee Skin Assessment Other Assessments Skin Assessment Comments skin intact, no swelling noted PT-OP-K Range of Motion Start: 10/27/18 15:16 Freq: Status: Active Protocol: Document 10/27/18 15:16 [facility] (Rec: 10/27/18 17:16 [facility] [id number]) Hip Goniometric Range of Motion Hip Measured in Degrees Left Flexion w/Knee Flexed 140 Straight Leg Raise 50 Extension 10 Internal Rotation 40 External Rotation 70 Right Flexion w/Knee Flexed 140 Straight Leg Raise 50 Extension 10 Internal Rotation 45 External Rotation 50 Hip ROM Limitations Hip ROM Limitations Soft Tissue Tightness Knee Goniometric Range of Motion Knee Measured in Degrees Left Flexion Passive (degrees) 100 Extension Active (degrees) 0 Right Flexion Passive (degrees) 110 Extension Active (degrees) 0 Knee ROM Limitations Knee ROM Limitations Soft Tissue Tightness Comments mod quad tightness demetria, PSLR 50 deg demetria mod tightness left IT band Ankle and Foot Goniometric Range of Motion Ankle and Foot ROM Limitations ROM Limitations Soft Tissue Tightness Comments mod gastroc and soleus tightness demetria PT-OP-L Special Tests Start: 10/27/18 15:16 Freq: Status: Active Protocol: Document 10/27/18 15:16 [facility] (Rec: 10/27/18 17:16 [facility] [id number]) Special Tests Knee Special Tests Patellar Grind Test Test Results negative demetria Flakita's Test Test Results positive for IT band tightness left Valgus- 25 Degrees Test Results negative demetria Varus- 25 Degrees Test Results positive left, negative right Sujatha Test Test Results positive left, negative right Posterior Draw Test Results negative demetria Anterior Draw Test Results mild increase in laxity left PT-OP-M Strength Start: 10/27/18 15:16 Freq: Status: Active Protocol: Document 10/27/18 15:16 [facility] (Rec: 10/27/18 17:16 [facility] [id number]) Hip Strength Hip Manual Muscle Testing Left Flexion (L2) 4 Good Extension (S1) 4- Good- Abduction 4- Good- External Rotation 4- Good- Internal Rotation 4+ Good+ Right Flexion (L2) 5 Normal Extension (S1) 5 Normal Abduction 4 Good External Rotation 4 Good Internal Rotation 5 Normal Knee Strength Knee Manual Muscle Testing Left Flexion (S2) 4 Good Extension (L3) 4 Good Right Flexion (S2) 5 Normal Extension (L3) 5 Normal Ankle/Foot Strength Ankle and Foot Manual Muscle Testing demetria Dorsiflexion (L4) 5 Normal Plantarflexion (S1) 5 Normal PT-OP-Q Treatments Start: 10/27/18 15:16 Freq: Status: Active Protocol: Document 11/26/18 14:30 [facility] (Rec: 11/26/18 17:27 HH [email or web address]) Gym Equipment Shuttle Recovery LLE Squat Resistance 50 Shuttle Recovery Platform Stable Reps/Time 10 x2 B squat Resistance 125 Shuttle Recovery Platform Stable Reps/Time 10 x2 Therapeutic Exercises Standing Exercises fwd and lateral lunge Side bilateral Equipment Used sliders Reps/Minutes 10 x2 SLS with ball ctach Side left Equipment Used tennis ball Reps/Minutes 10 x 3 Comments cues for alignment forward and lateral step-up Equipment Used 4 step RDL Side bilateral Equipment Used ankle touch Reps/Minutes 10 x 4 Comments cues on hip hinge lunges Side bilateral Reps/Minutes 10 x 4 Comments cues for alignment Squat form Side bilateral Equipment Used mirror Reps/Minutes 10 x4 Comments 4 inch box under R Le to facilitate WB on L Manual Therapy Treatment Soft Tissue Mobilization L lateral HS Mobilization Type Myofascial Release Strumming Sustained Pressure Intensity/Depth Moderate Body Position Prone PT-OP-R Modalities Start: 10/27/18 15:16 Freq: Status: Active Protocol: Document 11/24/18 16:23 [facility] (Rec: 11/24/18 16:37 [facility] [id number]) Electric Stimulation Electric Stimulation IFC Body Location L knee Duration (Minutes) 15 Intensity 11 Contraction Type Normal Target/Sweep Target Patient Position Supine Combined With Heat/Cold Cold Pack Comments Tolerating well PT-OP-T Assessment and Plan Start: 10/27/18 15:16 Freq: Status: Active Protocol: Document 11/26/18 14:30 [facility] (Rec: 11/26/18 17:27 HH [email or web address]) Physical Therapy Assessment Assessment Summary Assessment Pt c/o decreased pain after STM at L lateral distal hamstring. Tx cont focused on LLE stability and strengthening training. Pt noticed significant difference regarding strength and balance between B LE Physical Therapy Plan Next Visit Focus/Plan Next Note Type Treatment Note Next Visit Plan Cont focus on single leg stability and strength. progress knee/hip strength and stability program, hip and knee flexibility, neuro re-ed for improved efficiency of movement.
--- NOTE | 2018-12-03 16:11 | PT.OTN ---
Current Diagnoses Pain in unspecified knee (12/03/18) Physical Therapy Treatment Note PT-OP-A Visit Information Start: 10/27/18 15:16 Freq: Status: Active Protocol: Document 12/03/18 16:02 (Rec: 12/03/18 16:11 SA [id number]) Out-Patient Physical Therapy Visit Information Visit Information Visit Type Treatment Note Visit Start Time 14:30 Visit Stop Time 15:20 Total Visit Minutes 50 Visit Number 10 Number of SWAMPER Visits 1 PT-OP-B Current Condition Start: 10/27/18 15:16 Freq: Status: Active Protocol: Document 10/27/18 15:16 SAK (Rec: 10/27/18 16:13 SAK [id number]) Current Condition History of Current Condition Onset Date June 2018 Current Complaints left knee pain History of Current Condition Patient reports onset left knee pain while lifting weights with squatting motion. Iced knee, went to [employer] [facility] physician who recommended wrapping his knee, got worse. No other treatment or imaging. Knee pain increases with walking especially on uneven terrain, including stairs. Decreased pain with rest. No clicking or popping. No numbness or tingling. Only doing UE exercises and walking, no other exercises, admits to favoring of left LE. Tried knee brace but reports it made it worse. 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 Prior Functional Status Baseline Function- ADL's Independent Baseline Function- Mobility Independent Baseline Function- Gait independent, no pain or limp Baseline Function- Work/School No restrictions Baseline Function- Recreation/Hobbies bike, swim, walk, run, hike; no pain Current Functional Impairments (Reported) Functional Limitations- ADL's painful Functional Limitations- Mobility/Gait painful Functional Limitations- Work/School painful Functional Limitations- Recreation/ unable Hobbies PT-OP-C Subjective Start: 10/27/18 15:16 Freq: Status: Active Protocol: Document 12/03/18 16:02 SA (Rec: 12/03/18 16:11 SA [id number]) OP-PT Subjective Patient Comments Patient Comments Pt denied HS pain today, but notes he is having difficulty isolating LLE with daily activity. PT-OP-G Mobility & Gait Start: 10/27/18 15:16 Freq: Status: Active Protocol: Document 10/27/18 15:16 SAK (Rec: 10/27/18 17:16 SAK [id number]) OP Mobility Evaluation Transfers Sit to Stand holds left LE in front with majority of weight on right LE Functional Movements Squats painful, poor form with excessive ER bilateral LE left greater than right , left forefoot inversion OP Gait Assessment Gait Gait Assistance Required: Independent Gait Deviations General Gait Pattern Antalgic Factors Limiting Gait Function Factors Limiting Gait Function Pain Stair Climbing Evaluation Comments Stair Climbing Comments not done due to pain PT-OP-H Neuro Start: 10/27/18 15:16 Freq: Status: Active Protocol: Document 10/27/18 15:16 SAK (Rec: 10/27/18 17:16 [facility] [id number]) Sensation Evaluation Gross Sensation Gross Sensation WNL Comments Summary Comments denies tingling or numbness PT-OP-J Posture/Palpation/Skin Start: 10/27/18 15:16 Freq: Status: Active Protocol: Document 10/27/18 15:16 SAK (Rec: 10/27/18 17:16 [facility] [id number]) Posture Evaluation Position Standing Hip Posture (L) Externally Rotated (R) Externally Rotated Knee Posture (L) Int. Tibial Torsion (R) Int. Tibial Torsion Patellar Posture (L) Neutral (R) Neutral Ankle/Foot Posture (L) Pronated (R) Pronated (L) Supinated (L) Forefoot Adducted Foot Arch (L) Low Arch (R) No Arch Palpation Assessment Location left knee Palpation Details no palpable tenderness, patient reports pain is deep inside knee Skin Assessment Other Assessments Skin Assessment Comments skin intact, no swelling noted PT-OP-K Range of Motion Start: 10/27/18 15:16 Freq: Status: Active Protocol: Document 10/27/18 15:16 SAK (Rec: 10/27/18 17:16 SAK [id number]) Hip Goniometric Range of Motion Hip Measured in Degrees Left Flexion w/Knee Flexed 140 Straight Leg Raise 50 Extension 10 Internal Rotation 40 External Rotation 70 Right Flexion w/Knee Flexed 140 Straight Leg Raise 50 Extension 10 Internal Rotation 45 External Rotation 50 Hip ROM Limitations Hip ROM Limitations Soft Tissue Tightness Knee Goniometric Range of Motion Knee Measured in Degrees Left Flexion Passive (degrees) 100 Extension Active (degrees) 0 Right Flexion Passive (degrees) 110 Extension Active (degrees) 0 Knee ROM Limitations Knee ROM Limitations Soft Tissue Tightness Comments mod quad tightness demetria, PSLR 50 deg demetria mod tightness left IT band Ankle and Foot Goniometric Range of Motion Ankle and Foot ROM Limitations ROM Limitations Soft Tissue Tightness Comments mod gastroc and soleus tightness demetria PT-OP-L Special Tests Start: 10/27/18 15:16 Freq: Status: Active Protocol: Document 10/27/18 15:16 [facility] (Rec: 10/27/18 17:16 [facility] [id number]) Special Tests Knee Special Tests Patellar Grind Test Test Results negative demetria Flakita's Test Test Results positive for IT band tightness left Valgus- 25 Degrees Test Results negative demetria Varus- 25 Degrees Test Results positive left, negative right Sujatha Test Test Results positive left, negative right Posterior Draw Test Results negative demetria Anterior Draw Test Results mild increase in laxity left PT-OP-M Strength Start: 10/27/18 15:16 Freq: Status: Active Protocol: Document 10/27/18 15:16 [facility] (Rec: 10/27/18 17:16 [facility] [id number]) Hip Strength Hip Manual Muscle Testing Left Flexion (L2) 4 Good Extension (S1) 4- Good- Abduction 4- Good- External Rotation 4- Good- Internal Rotation 4+ Good+ Right Flexion (L2) 5 Normal Extension (S1) 5 Normal Abduction 4 Good External Rotation 4 Good Internal Rotation 5 Normal Knee Strength Knee Manual Muscle Testing Left Flexion (S2) 4 Good Extension (L3) 4 Good Right Flexion (S2) 5 Normal Extension (L3) 5 Normal Ankle/Foot Strength Ankle and Foot Manual Muscle Testing demetria Dorsiflexion (L4) 5 Normal Plantarflexion (S1) 5 Normal PT-OP-Q Treatments Start: 10/27/18 15:16 Freq: Status: Active Protocol: Document 12/03/18 16:02 SA (Rec: 12/03/18 16:11 SA [email or web address]) Cardio Equipment Bicycle (Upright) Duration (Minutes) 8 Resistance 14 Seat Position 5 Gym Equipment Cable Column (Body Solid) HS curls Details 4-5 plates Reps/Time 10x at 4 and 7x at 5plates Shuttle Recovery LLE Squat Resistance 50 Shuttle Recovery Platform Stable Reps/Time 10 x2 B squat Resistance 125 Shuttle Recovery Platform Stable Reps/Time 10 x2 Therapeutic Exercises Standing Exercises fwd and lateral lunge Side bilateral Reps/Minutes 10 x2 SLS with ball ctach Side left Equipment Used tennis ball Reps/Minutes 10 x 3 Comments cues for alignment forward and lateral step-up Equipment Used 4 step Comments to fatigue BOSU lunge Side left Equipment Used mirror and blue foam Reps/Minutes 20x RDL Side bilateral Equipment Used ankle touch Reps/Minutes 10 x 4 Comments cues on hip hinge lunges Side bilateral Reps/Minutes 2 x 10 Comments cues for alignment Squat form Side bilateral Equipment Used mirror Reps/Minutes 10 x4 Comments 4 inch box under R Le to facilitate WB on L PT-OP-R Modalities Start: 10/27/18 15:16 Freq: Status: Active Protocol: Document 12/03/18 16:02 SA (Rec: 12/03/18 16:11 SA [email or web address]) Electric Stimulation Electric Stimulation IFC Body Location L knee Duration (Minutes) 15 Intensity 11 Contraction Type Normal Target/Sweep Target Patient Position Supine Combined With Heat/Cold Cold Pack Comments Tolerating well PT-OP-T Assessment and Plan Start: 10/27/18 15:16 Freq: Status: Active Protocol: Document 12/03/18 16:02 SA (Rec: 12/03/18 16:11 SA [email or web address]) Physical Therapy Assessment Assessment Summary Assessment Education for LLE isolation with exercise and hiking/ biking for focused strength improvment, Focused on LLE strengthening today. Pt requested E-stim for pain management. Physical Therapy Plan Next Visit Focus/Plan Next Note Type Treatment Note Next Visit Plan Cont focus on single leg stability and strength. progress knee/hip strength and stability program, hip and knee flexibility, neuro re-ed for improved efficiency of movement.
--- NOTE | 2019-01-31 10:40 | PT.OPDS ---
Current Diagnoses Pain in unspecified knee (12/03/18) Provider Visit Care Team Role Provider Type Other Providers Specialty: Address: Phone: Fax: Email: Vince Davila MD Attending Provider Physician Primary Care Provider Specialty: Family Practice Address: [address] [place] [address], [id number] Email: [email or web address] Visit Number Visit Number 10 Discharge Summary PT-OP-B Current Condition Start: 10/27/18 15:16 Freq: Status: Active Protocol: Document 10/27/18 15:16 SAK (Rec: 10/27/18 16:13 SAK [id number]) Current Condition History of Current Condition Onset Date June 2018 Current Complaints left knee pain History of Current Condition Patient reports onset left knee pain while lifting weights with squatting motion. Iced knee, went to [facility] physician who recommended wrapping his knee, got worse. No other treatment or imaging. Knee pain increases with walking especially on uneven terrain, including stairs. Decreased pain with rest. No clicking or popping. No numbness or tingling. Only doing UE exercises and walking, no other exercises, admits to favoring of left LE. Tried knee brace but reports it made it worse. 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 Prior Functional Status Baseline Function- ADL's Independent Baseline Function- Mobility Independent Baseline Function- Gait independent, no pain or limp Baseline Function- Work/School No restrictions Baseline Function- Recreation/Hobbies bike, swim, walk, run, hike; no pain Current Functional Impairments (Reported) Functional Limitations- ADL's painful Functional Limitations- Mobility/Gait painful Functional Limitations- Work/School painful Functional Limitations- Recreation/ unable Hobbies PT-OP-C Subjective Start: 10/27/18 15:16 Freq: Status: Active Protocol: Document 12/03/18 16:02 SA (Rec: 12/03/18 16:11 SA [email or web address]) OP-PT Subjective Patient Comments Patient Comments Pt denied HS pain today, but notes he is having difficulty isolating LLE with daily activity. PT-OP-G Mobility & Gait Start: 10/27/18 15:16 Freq: Status: Active Protocol: Document 10/27/18 15:16 SAK (Rec: 10/27/18 17:16 SAK [id number]) OP Mobility Evaluation Transfers Sit to Stand holds left LE in front with majority of weight on right LE Functional Movements Squats painful, poor form with excessive ER bilateral LE left greater than right , left forefoot inversion OP Gait Assessment Gait Gait Assistance Required: Independent Gait Deviations General Gait Pattern Antalgic Factors Limiting Gait Function Factors Limiting Gait Function Pain Stair Climbing Evaluation Comments Stair Climbing Comments not done due to pain PT-OP-H Neuro Start: 10/27/18 15:16 Freq: Status: Active Protocol: Document 10/27/18 15:16 SAK (Rec: 10/27/18 17:16 [facility] [id number]) Sensation Evaluation Gross Sensation Gross Sensation WNL Comments Summary Comments denies tingling or numbness PT-OP-J Posture/Palpation/Skin Start: 10/27/18 15:16 Freq: Status: Active Protocol: Document 10/27/18 15:16 SAK (Rec: 10/27/18 17:16 [facility] [id number]) Posture Evaluation Position Standing Hip Posture (L) Externally Rotated (R) Externally Rotated Knee Posture (L) Int. Tibial Torsion (R) Int. Tibial Torsion Patellar Posture (L) Neutral (R) Neutral Ankle/Foot Posture (L) Pronated (R) Pronated (L) Supinated (L) Forefoot Adducted Foot Arch (L) Low Arch (R) No Arch Palpation Assessment Location left knee Palpation Details no palpable tenderness, patient reports pain is deep inside knee Skin Assessment Other Assessments Skin Assessment Comments skin intact, no swelling noted PT-OP-K Range of Motion Start: 10/27/18 15:16 Freq: Status: Active Protocol: Document 10/27/18 15:16 SAK (Rec: 10/27/18 17:16 SAK [id number]) Hip Goniometric Range of Motion Hip Left Flexion w/Knee Flexed 140 Straight Leg Raise 50 Extension 10 Internal Rotation 40 External Rotation 70 Right Flexion w/Knee Flexed 140 Straight Leg Raise 50 Extension 10 Internal Rotation 45 External Rotation 50 Hip ROM Limitations Hip ROM Limitations Soft Tissue Tightness Knee Goniometric Range of Motion Knee Left Flexion Passive (degrees) 100 Extension Active (degrees) 0 Right Flexion Passive (degrees) 110 Extension Active (degrees) 0 Knee ROM Limitations Knee ROM Limitations Soft Tissue Tightness Comments mod quad tightness demetria, PSLR 50 deg demetria mod tightness left IT band Ankle and Foot Goniometric Range of Motion Ankle and Foot ROM Limitations ROM Limitations Soft Tissue Tightness Comments mod gastroc and soleus tightness demetria PT-OP-L Special Tests Start: 10/27/18 15:16 Freq: Status: Active Protocol: Document 10/27/18 15:16 [facility] (Rec: 10/27/18 17:16 [facility] [id number]) Special Tests Knee Special Tests Patellar Grind Test Test Results negative demetria Flakita's Test Test Results positive for IT band tightness left Valgus- 25 Degrees Test Results negative demetria Varus- 25 Degrees Test Results positive left, negative right Sujatha Test Test Results positive left, negative right Posterior Draw Test Results negative demetria Anterior Draw Test Results mild increase in laxity left PT-OP-M Strength Start: 10/27/18 15:16 Freq: Status: Active Protocol: Document 10/27/18 15:16 [facility] (Rec: 10/27/18 17:16 [facility] [id number]) Hip Strength Hip Manual Muscle Testing Left Flexion (L2) 4 Good Extension (S1) 4- Good- Abduction 4- Good- External Rotation 4- Good- Internal Rotation 4+ Good+ Right Flexion (L2) 5 Normal Extension (S1) 5 Normal Abduction 4 Good External Rotation 4 Good Internal Rotation 5 Normal Knee Strength Knee Manual Muscle Testing Left Flexion (S2) 4 Good Extension (L3) 4 Good Right Flexion (S2) 5 Normal Extension (L3) 5 Normal Ankle/Foot Strength Ankle and Foot Manual Muscle Testing demetria Dorsiflexion (L4) 5 Normal Plantarflexion (S1) 5 Normal PT-OP-T Assessment and Plan Start: 10/27/18 15:16 Freq: Status: Active Protocol: Document 01/31/19 10:39 [facility] (Rec: 01/31/19 10:40 [facility] [id number]) Physical Therapy Plan Discharge Physical Therapy Discharge Reasons No Longer Attending PT
== END 2019-02-01 13:09 | disposition home or self-care (01) ==
LOC: PHYS 14:30
PROVIDERS: PCP Family Medicine; Visit Provider Family Medicine
DX: M25.569 Pain in unspecified knee (principal)
CPT/HCPCS: 97010; 97014; 97035; 97110; 97140; 97162; 97535; G0283

== ENCOUNTER → 2019-01-04 10:23 | Outpatient (CLI) | payer OTHER, MEDICAID, SELFPAY ==
[2019-01-04 11:44] LABS: Add Manual Diff / Slide Review NO; Basophils Absolute Auto 0 /uL (0-100); Basophils Percent Auto 0.3 % (0-2); Eosinophils Absolute Auto 0 /uL (0-450); Eosinophils Percent Auto 0.9 % (2-4); Hematocrit 39.7 % (41-53); Hemoglobin 13.1 g/dL (13.5-17.5); Lymphocytes Absolute Auto 1400 /uL (1100-4500); Lymphocytes Percent Auto 30.9 % (25-40); Mean Corpuscular HGB Conc 33.1 % (30-36); Mean Corpuscular Hemoglobin 28.1 PG (26-34); Mean Corpuscular Volume 84.7 fL (80-100); Monocytes Absolute Auto 500 /uL (0-900); Monocytes Percent Auto 11.7 % (3-14); Neutrophils Absolute Auto 2500 /uL (1500-7000); Neutrophils Percent Auto 56.2 % (50-75); Platelet Count 298 X10^3/uL (150-400); Red Blood Cell Count 4.68 X10^6/uL (4.5-5.9); Red Cell Distribution Width 14.1 % (11.6-14.8); White Blood Cell Count 4.5 X10^3/uL (4.5-11.0)
[2019-01-04 12:04] LABS: BUN Creatinine Ratio 16.3 (6-22); Blood Urea Nitrogen 13 mg/dL (9-20); Calcium 9.5 mg/dL (8.4-10.2); Carbon Dioxide 30 mmol/L (22-32); Chloride 101 mmol/L (98-107); Estimated Glomerular Filt Rate > 60.0 mL/min (>60); Glucose 90 mg/dL (70-100); HEMOLYSIS < 15 (0-50); Potassium 4.1 mmol/L (3.4-5.1); Sodium 140 mmol/L (137-145)
== END ==
PROVIDERS: PCP Family Medicine; Visit Provider Family Medicine
DX: R53.83 Other fatigue (principal)
CPT/HCPCS: 36415; 80048; 84443; 85025

== ENCOUNTER → 2022-09-02 17:03 | Outpatient (CLI) | payer OTHER, MEDICAID, SELFPAY ==
[2022-09-02 17:56] LABS: Add Manual Diff / Slide Review NO; Basophils Absolute Auto 0 /uL (0-100); Basophils Percent Auto 0.4 % (0-2); Eosinophils Absolute Auto 0 /uL (0-450); Eosinophils Percent Auto 0.7 % (2-4); Hematocrit 40.1 % (41-53); Hemoglobin 13.7 g/dL (13.5-17.5); Lymphocytes Absolute Auto 700 /uL (1100-4500); Lymphocytes Percent Auto 16.3 % (25-40); Mean Corpuscular HGB Conc 34.3 % (30-36); Mean Corpuscular Hemoglobin 28.9 PG (26-34); Mean Corpuscular Volume 84.4 fL (80-100); Monocytes Absolute Auto 400 /uL (0-900); Monocytes Percent Auto 8.2 % (3-14); Neutrophils Absolute Auto 3200 /uL (1500-7000); Neutrophils Percent Auto 74.4 % (50-75); Platelet Count 302 X10^3/uL (150-400); Red Blood Cell Count 4.75 X10^6/uL (4.5-5.9); Red Cell Distribution Width 12.4 % (11.6-14.8); White Blood Cell Count 4.3 X10^3/uL (4.5-11.0)
[2022-09-02 18:06] LABS: HEMOLYSIS < 15 (0-50); Iron 75 ug/dL (49-181)
[2022-09-02 18:12] LABS: Alanine Aminotransferase 17 IU/L (<50); Albumin 4.6 g/dL (3.5-5.0); Albumin Globulin Ratio 1.4 (1.0-2.8); Alkaline Phosphatase 74 U/L (38-126); Aspartate Aminotransferase 24 IU/L (17-59); BUN Creatinine Ratio 22.5 (6-22); Bilirubin Total 0.4 mg/dL (0.2-1.3); Blood Urea Nitrogen 16 mg/dL (9-20); Calcium 9.4 mg/dL (8.4-10.2); Carbon Dioxide 27 mmol/L (22-32); Chloride 101 mmol/L (98-107); Estimated Glomerular Filt Rate > 60 mL/min (>60); Globulin 3.4 g/dL (1.7-4.1); Glucose 89 mg/dL (70-100); HEMOLYSIS < 15 (0-50); Potassium 3.7 mmol/L (3.4-5.1); Sodium 141 mmol/L (137-145)
[2022-09-02 18:20] LABS: Percent Iron Saturation 27 % (20-50); Total Iron Binding Capacity 275 ug/dL (261-462); Transferrin 204 mg/dL (206-381)
[2022-09-02 18:40] LABS: TSH w/ Reflex to FT4 1.18 uIU/mL (0.47-4.68)
== END ==
PROVIDERS: PCP Family Medicine; Referring Provider Physician Assistant; Visit Provider Physician Assistant
DX: R53.83 Other fatigue (principal); Z86.2 Personal history of diseases of the blood and blood-forming organs and certain disorders involving the immune mechanism
CPT/HCPCS: 36415; 80053; 83540; 83550; 84443; 85025